=== PATIENT | male | born 1940 | race Caucasian/White ===

== ENCOUNTER 2018-07-13 12:01 | Inpatient (IN) | payer MEDICARE, MEDICAID ==
[~2018-07-13] VITALS: Ht 165.1 cm; Wt 72.3 kg
--- NOTE | 2018-07-13 12:07 | NUR ---
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 PT IS SENT FROM [facility] FOR "G-TUBE MALFUNCTION". UPON ASSESSMENT, G-TUBE SITE IS INFLAMED, FOUL SMELLING, AND ABD DISTENDED. NO DRAINAGE NOTED FROM G-TUBE SITE. G-TUBE APPEARS TO BE CLOGGED WITH BROWN-COLORED SUBSTANCE. VS WNL. PT DOES NOT APPEAR TO BE IN ANY APPARENT DISTRESS AT THIS TIME.
--- NOTE | 2018-07-13 12:38 | NUR ---
GLASSWARE MAKER DEMONSTRATOR AND WATCH SUPERVISOR AT BEDSIDE.
--- NOTE | 2018-07-13 12:40 | NUR ---
Donavon kaplan in [facility] - 07/13/18 at 1243 by WALLACE PT TAKEN TO RADIOLOGY FOR CT SCAN.
[2018-07-13] MEDS ORDERED: VANCOMYCIN IV 200 ML ONE (12:43)
[2018-07-13] MEDS ORDERED: PIPERACILLIN/TAZOBACTAM/D5W 50 ML IV ONE (12:43)
[2018-07-13] MEDS ORDERED: VANCOMYCIN 1G/D5W 200 ML PIGGYBACK IV ONE (12:45)
[2018-07-13] MEDS ORDERED: PIPERACILLIN SODIUM/TAZOBACTAM 2.25 G in IV DEXTROSE 5% 50 ML IV ONE (12:45)
--- NOTE | 2018-07-13 12:52 | NUR ---
PT TAKEN TO RADIOLOGY FOR CT SCAN.
[2018-07-13] MEDS ORDERED: IPRA3AMP23 IH (12:57)
[2018-07-13] MEDS ORDERED: FOLI1TAB16 GT (12:57)
[2018-07-13] MEDS ORDERED: FURO40TA5 GT (12:57)
[2018-07-13] MEDS ORDERED: ASPI81TA31 GT (12:57)
[2018-07-13] MEDS ORDERED: MULT-213 GT (12:57)
[2018-07-13] MEDS ORDERED: ASCO-340 GT (12:57)
[2018-07-13] MEDS ORDERED: THIA100T13 GT (12:57)
[2018-07-13] MEDS ORDERED: NA P133E RC (12:57)
[2018-07-13] MEDS ORDERED: FAMO20TA8 GT (12:57)
[2018-07-13] MEDS ORDERED: DOCU50LI GT (12:57)
[2018-07-13] MEDS ORDERED: LEVO125T8 GT (12:57)
[2018-07-13] MEDS ORDERED: ACET325T53 GT (12:57)
[2018-07-13] MEDS ORDERED: DICL100G16 TP (12:57)
[2018-07-13] MEDS ORDERED: FERR220S18 GT (12:57)
[2018-07-13] MEDS ORDERED: INSU3INS6 SQ (12:57)
[2018-07-13] MEDS ORDERED: NITR0.4T48 SL (12:57)
[2018-07-13] MEDS ORDERED: BISA10SU12 RC (12:57)
[2018-07-13] MEDS ORDERED: AMLO5TAB9 GT (12:57)
[2018-07-13] MEDS ORDERED: ISOS30TA9 GT (12:57)
[2018-07-13] MEDS ORDERED: MAGN400O6 GT (12:57)
[2018-07-13] MEDS ORDERED: BLOO-140 IN (12:57)
--- NOTE | 2018-07-13 13:03 | NUR ---
PT BACK IN ED FROM RADIOLOGY.
[2018-07-13 13:08] LABS: CARBON DIOXIDE 25 mmol/L (21-32); CHLORIDE 103 mmol/L (98-107); CREATININE 3.4 mg/dL (0.6-1.3); GLUCOSE 210 mg/dL (74-106); POTASSIUM 4.4 mmol/L (3.5-5.1); UREA NITROGEN, BLOOD 74 mg/dL (7-18)
[2018-07-13 13:16] LABS: BASOPHILS % (AUTO) 0.3 % (0.0-2.0); EOSINOPHILS # (AUTO) 0.2 K/uL (0.0-0.7); EOSINOPHILS % (AUTO) 3.4 % (0.0-7.0); LYMPHOCYTES # (AUTO) 1.4 K/uL (20.0-40.0); LYMPHOCYTES % (AUTO) 21.2 % (20.5-51.5); MONOCYTES # (AUTO) 0.7 K/uL (2.0-10.0); MONOCYTES % (AUTO) 10.1 % (0.0-11.0); NEUTROPHILS # (AUTO) 4.2 K/uL (1.8-8.9); PLATELET COUNT (AUTO) 247 K/uL (152-348); WHITE BLOOD COUNT (AUTO) 6.4 K/uL (3.6-10.2)
[2018-07-13 13:21] LABS: ALANINE AMINOTRANSFERASE 23 U/L (16-63); ALKALINE PHOSPHATASE 196 U/L (50-136); ASPARTATE AMINOTRANSFERASE 19 U/L (15-37); BILIRUBIN,DIRECT 0.1 mg/dL (0.0-0.2); BILIRUBIN,TOTAL 0.4 mg/dL (0.2-1.0); TOTAL PROTEIN, SERUM 8.3 g/dL (6.4-8.2)
[2018-07-13 14:15] LABS: RED BLOOD CELL COUNT(AUTO) 1.78 MIL/uL (4.06-5.63)
[2018-07-13 14:16] LABS: MEAN CORPUSCULAR HEMOGLOBIN 38.5 uug (23.8-33.4)
[2018-07-13 14:17] LABS: HEMATOCRIT 24.5 % (36.7-47.1); MEAN CORPUSCULAR HGB CONC 37 g/dL (32.5-36.3)
[2018-07-13 15:14] LABS: *BILIRUBIN,URIN NEGATIVE (NEGATIVE); *BLOOD, URINE Trace-intact (NEGATIVE); *CLARITY,URINE CLEAR (CLEAR); *COLOR,URINE YELLOW (YELLOW); *KETONES,URINE NEGATIVE (NEGATIVE); *UROBILINOGEN,URINE 0.2 E.U./dl (NORMAL); LEUKOCYTE ESTERASE ,URINE NEGATIVE (NEGATIVE); NITRITE, URINE NEGATIVE (NEGATIVE); PH,URINE 7.5 (5.0-8.0); UGLUCOSE 1+ (NEGATIVE)
[2018-07-13 15:20] LABS: WBC,URINE 0-3 /HPF (0-3)
[2018-07-13 15:21] LABS: MUCUS,URINE FEW /LPF (0-FEW)
--- NOTE | 2018-07-13 15:24 | NUR ---
CALLED [facility] FOR PANEL CALL. AWAITING CALL-BACK. ATTEMPT 1.
--- NOTE | 2018-07-13 15:51 | NUR ---
ER SPOKE W/ DR. DORSEY RE PT'S ADMISSION.
--- NOTE | 2018-07-13 15:59 | NUR ---
GAVE ADMITTING REPORT TO KWAME BIRD.
--- NOTE | 2018-07-13 16:27 | NUR ---
Pt. admitted to M/S 204, under care of Dr. DORSEY. Belongs List completed
[2018-07-13 17:00] VITALS: BP 117/69
--- NOTE | 2018-07-13 17:00 | NUR ---
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
--- NOTE | 2018-07-13 17:30 | NUR ---
GT SITE AND TRACH STOMA SITE WAS CLEAN AND APPLY DSG INTACT
--- NOTE | 2018-07-13 18:30 | NUR ---
DR DORSEY WAS CALL REGARDING NEED ADM ORDER AND MESSAGE LEFT
--- NOTE | 2018-07-13 19:30 | NUR ---
RECEIVED PT IN BED,AWAKE, ALERT, IN NO ACUTE SIGNS OF DISTRESS. NO C/O PAIN AT THIS TIME. NPO. HERE FOR GTUBE MALFUNCTION. AWAITING FOR ORDERS. SAFETY MEASURES OBSERVED.
[2018-07-13 19:56] VITALS: BP 166/56
[2018-07-13 21:00] VITALS: BP 156/56
[2018-07-13] MEDS ORDERED: DEXTROSE 50% 50 ML DISP.SYRIN IV PRN (21:45)
[2018-07-13 22:00] VITALS: BP 144/49
[2018-07-13] MEDS: IV D5 1/2 NS 1000 ML 1,000 ML IV PRN (22:12)
[2018-07-14] MEDS: BLOOD SUGAR DIAGNOSTIC 1 EACH STRIP VI SCH ×4 (00:35→17:56)
[2018-07-14] MEDS: INSULIN REGULAR, HUMAN 300 UNIT/3 ML VIAL SQ PRN ×4 (00:38→17:58)
[2018-07-14 04:00] VITALS: BP 152/60
[2018-07-14] MEDS: hydrALAZINE HCL 20 MG/1 ML VIAL IV PRN ×4 (04:35→20:11)
--- NOTE | 2018-07-14 06:11 | NUR ---
PT IN BED, RESTING, CONTINUE ON NPO, ACCUCHECK DONE WITH INSULIN COVERAGE. TURNED AND REPOSITIONED. IV FLUID RUNNING ORDERED. SAFETY MEASURES MAINTAINED.
[2018-07-14 06:49] LABS: CARBON DIOXIDE 26 mmol/L (21-32); CHLORIDE 108 mmol/L (98-107); CREATININE 3.1 mg/dL (0.6-1.3); GLUCOSE 158 mg/dL (74-106); POTASSIUM 4.1 mmol/L (3.5-5.1); UREA NITROGEN, BLOOD 65 mg/dL (7-18)
--- NOTE | 2018-07-14 07:45 | NUR ---
DR SUE HERE SEEN PATIENT AND AM LAB RESULT STATE WILL F/U AND CALL [facility]MER CERON HIMSELF
--- NOTE | 2018-07-14 08:00 | NUR ---
AWAKE ALERT COOPERATE WELL NO SOB OR PAIN ON ASPIRATION AND FALL PRECAUTION CONTINUE IVF AND KEEP NPO AT THIS TIME GT INPLACE WITH CLAMP RESTING WELL IN BED WITH CALL LIGHT IN REACH
--- NOTE | 2018-07-14 08:00 | NUR ---
AWAKE COOPERATE WELL NO PAIN OR SOB ,KEEP NPO FOR NOW ,ON FALL AND ASPIRATION PRECAUTION BED ALARM ON AND CALL LIGHT IN REACH
[2018-07-14 08:31] LABS: BASOPHILS % (AUTO) 0.1 % (0.0-2.0); EOSINOPHILS # (AUTO) 0.3 K/uL (0.0-0.7); EOSINOPHILS % (AUTO) 5.1 % (0.0-7.0); HEMATOCRIT 22.7 % (36.7-47.1); HEMOGLOBIN 7.7 g/dL (12.5-16.3); LYMPHOCYTES # (AUTO) 1.3 K/uL (20.0-40.0); LYMPHOCYTES % (AUTO) 20.7 % (20.5-51.5); MEAN CORPUSCULAR HEMOGLOBIN 36.3 uug (23.8-33.4); MEAN CORPUSCULAR HGB CONC 34 g/dL (32.5-36.3); MEAN CORPUSCULAR VOLUME 106.4 fL (73.0-96.2); MONOCYTES # (AUTO) 0.7 K/uL (2.0-10.0); MONOCYTES % (AUTO) 11.3 % (0.0-11.0); NEUTROPHILS # (AUTO) 3.9 K/uL (1.8-8.9); NEUTROPHILS % (AUTO) 62.8 % (38.5-71.5); PLATELET COUNT (AUTO) 158 K/uL (152-348); WHITE BLOOD COUNT (AUTO) 6.2 K/uL (3.6-10.2)
[2018-07-14 08:32] LABS: RED BLOOD CELL COUNT(AUTO) 2.14 MIL/uL (4.06-5.63)
--- NOTE | 2018-07-14 09:00 | NUR ---
PHYSICAL THERAPY HERE AND ASSIST TO OOB AMB STILL GEN WEAK
[2018-07-14 09:36] LABS: EOSINOPHILS % (MANUAL) 5 % (0-8); LYMPHOCYTES % (MANUAL) 20 % (20-40); MONOCYTES % (MANUAL) 11 % (2-10); NEUTROPHILS % (MANUAL) 64 % (42-75)
[2018-07-14 11:46] VITALS: BP 179/65
[2018-07-14] MEDS ORDERED: BLOOD SUGAR DIAGNOSTIC 1 EACH STRIP VI SCH (12:00)
--- NOTE | 2018-07-14 13:00 | NUR ---
STILL KEEP NPO WAITING FOR GI MD CONSULT DR PRADHAN TO SEE HIM TODAY.FAMILY WAS INFORM
[2018-07-14] MEDS: IV D5 1/2 NS 1000 ML 1,000 ML IV PRN (13:01)
[2018-07-14 14:57] VITALS: BP 156/50
--- NOTE | 2018-07-14 17:00 | NUR ---
DR PRADHAN CAME AND SEE PATIENT STATE GET SUPPLY GT MAURITIAN #14 READY FOR HIM IN AM HE WILL CHANGE IT AND MEDICATION ANTIBIOTICS WAS ORDER
[2018-07-14] MEDS ORDERED: VANCOMYCIN IV 1 G in PREMIXED 0 EACH IV SCH ×2 (17:30→18:00)
--- NOTE | 2018-07-14 18:00 | NUR ---
RESTING QUIET KEEP NPO ORDER MOUTH CARE Q2 HR GIVEN STABLE HEMODYNAMIC ,PAIN UNDER CONTROL GT SITE D/I DRAINAGE LESS TODAY SAFETY MEASURE PROVIDED CALL LIGHT IN REACH CONTINUE IVF
--- NOTE | 2018-07-14 18:08 | NUR ---
CLINICAL PHARMACY NOTE:VANCOMYCIN DOSING Vancomycin dosing per protocol on 78 y/o male 5'5" 159 for cellulitis Temp 98 BUN 65 Scr 3.1 WBC 6.2 also on Zosyn. Due to decrease renal function will dose by levels. Give vancomycin 1gm ivpb today. Random level ordered for tomorrow evening.Will continue to monitor.
[2018-07-14 19:12] VITALS: BP 158/51
[2018-07-14] MEDS: PIPERACILLIN/TAZOBACTAM/D5W 3.375 G in PREMIXED 1 EACH IV SCH (20:45)
[2018-07-14] MEDS ORDERED: PIPERACILLIN/TAZOBACTAM/D5W 3.375 G in PREMIXED 1 EACH IV SCH (22:00)
[2018-07-15] MEDS: BLOOD SUGAR DIAGNOSTIC 1 EACH STRIP VI SCH ×5 (01:21→23:33)
[2018-07-15] MEDS: INSULIN REGULAR, HUMAN 300 UNIT/3 ML VIAL SQ PRN ×5 (01:21→23:35)
--- NOTE | 2018-07-15 02:21 | NUR ---
pt continues to have productive cough yellow and thick on stoma. stoma cleaned as and suctioned as needed. no signs of sob. will continue to reassess
[2018-07-15 03:37] VITALS: BP 140/54
[2018-07-15 06:13] LABS: IRON, SERUM 53 ug/dL (50-175)
[2018-07-15 06:39] LABS: FERRITIN 280 ng/mL (26-388)
[2018-07-15 06:43] LABS: EOSINOPHILS # (AUTO) 0.2 K/uL (0.0-0.7); EOSINOPHILS % (AUTO) 3.1 % (0.0-7.0); HEMATOCRIT 24.7 % (36.7-47.1); HEMOGLOBIN 8.7 g/dL (12.5-16.3); LYMPHOCYTES # (AUTO) 0.7 K/uL (20.0-40.0); LYMPHOCYTES % (AUTO) 11.8 % (20.5-51.5); MEAN CORPUSCULAR HGB CONC 35 g/dL (32.5-36.3); MEAN CORPUSCULAR VOLUME 102.7 fL (73.0-96.2); MONOCYTES # (AUTO) 0.6 K/uL (2.0-10.0); MONOCYTES % (AUTO) 10.6 % (0.0-11.0); NEUTROPHILS # (AUTO) 4.2 K/uL (1.8-8.9); NEUTROPHILS % (AUTO) 74.5 % (38.5-71.5); WHITE BLOOD COUNT (AUTO) 5.6 K/uL (3.6-10.2)
[2018-07-15 06:44] LABS: PLATELET COUNT (AUTO) 166 K/uL (152-348)
[2018-07-15 07:15] LABS: EOSINOPHILS % (MANUAL) 3 % (0-8); LYMPHOCYTES % (MANUAL) 12 % (20-40); MONOCYTES % (MANUAL) 10 % (2-10); NEUTROPHILS % (MANUAL) 75 % (42-75)
--- NOTE | 2018-07-15 07:47 | NUR ---
patient resting comfortably in bed at this time. NPO status. a/ox4. s/p trach with stoma - clean at this time. ivf running. stable condition. no signs of distress. bed alarm on. call light within reach of patient. will f/u with OR about g-tube and possible placement per MD orders.
[2018-07-15] MEDS: PIPERACILLIN/TAZOBACTAM/D5W 3.375 G in PREMIXED 1 EACH IV SCH ×2 (09:03→20:25)
--- NOTE | 2018-07-15 10:02 | NUR ---
WOUND CARE CONSULT WOUND CARE RECEIVED CONSULT FOR G TUBE SITE INFECTION. WOUND CARE WILL DEFER TO PMD/SURGICAL/GI AT THIS TIME. PATIENT WITH PAUL AT 17, ALL PRESSURE ULCER PREVENTION MEASURES ARE NOTED TO BE IN PLACE AT THIS TIME. WILL SEE PRN.
[2018-07-15 11:29] VITALS: BP 135/60
--- NOTE | 2018-07-15 11:30 | NUR ---
NON-ADMINISTRATION INSULIN PER SLIDING SCALE: RISK OF HYPOGLYCEMIA.
[2018-07-15 13:00] VITALS: BP 164/59
--- NOTE | 2018-07-15 13:10 | NUR ---
ELEVATED BP: 164/59, HR 64. ADMINISTERED HYDRALAZINE 10 MG IVP PRN. WILL RE-CHECK BP. STABLE CONDITION AT THIS TIME. NO SIGNS OF DISTRESS.
[2018-07-15] MEDS: hydrALAZINE HCL 20 MG/1 ML VIAL IV PRN (13:59)
--- NOTE | 2018-07-15 14:18 | NUR ---
OBTAINED EQUIPMENT MD REQUESTED FOR, WHICH IS AT BEDSIDE. AWAITING MD ARRIVAL FOR INSERTION.
[2018-07-15 14:39] VITALS: BP 143/49
[2018-07-15 15:09] VITALS: BP 164/59
--- NOTE | 2018-07-15 15:22 | NUR ---
Clinical Pharmacy Note: Vancomycin Dosing per Pharmacy Subjective: Vancomycin IV to continue on this 78 yo male patient for cellulitis. Objective: BUN 65/Scr 3.1 (ARF) WBC 6.2 Temperature 98.4 Vanco random level: Pending (ordered for today at 1700) ht 165 cm wt 72 kg Assessment/Plan: Will continue to dose by level due to elevated srcr. Patient received vanco 1gm IVPB x1 dose yesterday at 1800. Plan to draw vanco random level today at 1700. Will review the level & dose further if needed as per level. Will follow daily. Addendum: 07/15/18 at 1825 by DENNIS SARMIENTO ADM VANCOMYCIN TROUGH @ 17:32 = 14.3 ; WILL GIVE ANOTHER DOSE OF VANCOMYCIN 1GM X 1
[2018-07-15 15:25] LABS: *BILIRUBIN,URIN NEGATIVE (NEGATIVE); *BLOOD, URINE Trace-lysed (NEGATIVE); *CLARITY,URINE CLEAR (CLEAR); *COLOR,URINE YELLOW (YELLOW); *KETONES,URINE NEGATIVE (NEGATIVE); *UROBILINOGEN,URINE 0.2 E.U./dl (NORMAL); LEUKOCYTE ESTERASE ,URINE NEGATIVE (NEGATIVE); NITRITE, URINE NEGATIVE (NEGATIVE); PH,URINE 8.5 (5.0-8.0); UGLUCOSE NEGATIVE (NEGATIVE)
[2018-07-15 15:33] LABS: BACTERIA,URINE NONE SEEN /HPF (NONE SEEN); RBC,URINE 0-3 /HPF (0-3); SQUAMOUS EPITHELIAL CELL,UR FEW /HPF (NONE SEEN); WBC,URINE 0-3 /HPF (0-3)
[2018-07-15 15:39] LABS: *CREATININE,URINE 74.4 mg/dL (30-125)
[2018-07-15 15:49] LABS: MUCUS,URINE FEW /LPF (0-FEW)
--- NOTE | 2018-07-15 17:45 | NUR ---
awaiting g-tube reinsertion by Dr. Hoover. No significant changes throughout shift. stable condition. no signs of respiratory distress. continues to have thick/yellow secretions from trach stoma upon coughing - clean at this time. NPO status. ivf running. blood sugar monitored and managed.
--- NOTE | 2018-07-15 17:49 | NUR ---
bed alarm on, call light within reach of patient. safety measures implemented.
[2018-07-15] MEDS ORDERED: VANCOMYCIN IV 1 G in PREMIXED 0 EACH IV ONE (18:30)
--- NOTE | 2018-07-15 19:25 | NUR ---
RECEIVED PT AWAKE,ALERT, AND ORINTEDX3.PT SHOWS NO SIGNS OF DISTRESS.PT IV INTACT AND PATENT.PT ON NPO. PT ON G-TUBE. CALL LIGHT WITHIN REACH. SAFETY AND COMFORT PROVIDED. WILL CONTINUE TO MONITOR.
[2018-07-15 20:11] VITALS: BP 159/64
[2018-07-16 04:00] VITALS: BP 147/61
[2018-07-16] MEDS: IV D5 1/2 NS 1000 ML 1,000 ML IV PRN (05:11)
[2018-07-16] MEDS: BLOOD SUGAR DIAGNOSTIC 1 EACH STRIP VI SCH ×3 (05:17→17:24)
--- NOTE | 2018-07-16 06:19 | NUR ---
PT SLEPT THROUGHOUT THE SHIFT. PT SHOWS NO SIGNS OF ACUTE DISTRESS. PT IV INTACT AND PATENT.PT ON NPO. CALL LIGHT WITHIN REACH. SAFETY AND COMFORT PROVIDED. WILL ENDORSE ACCORDINGLY TO INCOMING NURSE FOR CONTINUITY OF CARE.
--- NOTE | 2018-07-16 07:08 | NUR ---
PATIENT RESTING IN BED AT THIS TIME. AWAITING DR. PRADHAN FOR G-TUBE RE-INSERTION. STABLE CONDITION. NO SIGNS OF DISTRESS. NO SIGNS OF RESPIRATORY DISTRESS. BED ALARM ON, CALL LIGHT WITHIN REACH OF PATIENT. IVF RUNNING. BLOOD SUGAR MANAGED THIS MORNING. NO COVERAGE NEEDED.
[2018-07-16 07:41] LABS: ALANINE AMINOTRANSFERASE 17 U/L (16-63); ALKALINE PHOSPHATASE 166 U/L (50-136); ASPARTATE AMINOTRANSFERASE 26 U/L (15-37); BILIRUBIN,TOTAL 0.6 mg/dL (0.2-1.0); CARBON DIOXIDE 22 mmol/L (21-32); CHLORIDE 115 mmol/L (98-107); GLUCOSE 151 mg/dL (74-106); MAGNESIUM 2.7 mg/dL (1.8-2.4); PHOSPHOROUS 3.8 mg/dL (2.5-4.9); POTASSIUM 4.2 mmol/L (3.5-5.1); TOTAL PROTEIN, SERUM 7.3 g/dL (6.4-8.2); UREA NITROGEN, BLOOD 50 mg/dL (7-18)
[2018-07-16 07:47] LABS: BASOPHILS % (AUTO) 0.2 % (0.0-2.0); EOSINOPHILS # (AUTO) 0.1 K/uL (0.0-0.7); EOSINOPHILS % (AUTO) 2.9 % (0.0-7.0); HEMATOCRIT 22.1 % (36.7-47.1); HEMOGLOBIN 8.2 g/dL (12.5-16.3); LYMPHOCYTES # (AUTO) 0.5 K/uL (20.0-40.0); LYMPHOCYTES % (AUTO) 16.1 % (20.5-51.5); MEAN CORPUSCULAR HEMOGLOBIN 40.2 uug (23.8-33.4); MEAN CORPUSCULAR HGB CONC 37 g/dL (32.5-36.3); MEAN CORPUSCULAR VOLUME 108.2 fL (73.0-96.2); MONOCYTES # (AUTO) 0.2 K/uL (2.0-10.0); MONOCYTES % (AUTO) 6.5 % (0.0-11.0); NEUTROPHILS # (AUTO) 2.3 K/uL (1.8-8.9); NEUTROPHILS % (AUTO) 74.3 % (38.5-71.5)
[2018-07-16 07:51] LABS: RED BLOOD CELL COUNT(AUTO) 2.05 MIL/uL (4.06-5.63)
[2018-07-16 07:54] LABS: PLATELET COUNT (AUTO) 163 K/uL (152-348); WHITE BLOOD COUNT (AUTO) 5.1 K/uL (3.6-10.2)
[2018-07-16] MEDS: PIPERACILLIN/TAZOBACTAM/D5W 3.375 G in PREMIXED 1 EACH IV SCH ×2 (08:14→20:55)
[2018-07-16] MEDS: NITROGLYCERIN OINT 1 GM PACKET TP SCH ×3 (08:15→17:35)
--- NOTE | 2018-07-16 08:15 | NUR ---
INCREASED BP AT 164/58. NITROBID ADMINISTERED. WILL RE-CHECK.
--- NOTE | 2018-07-16 09:30 | NUR ---
DR. PRADHAN INSERTED G-TUBE. DR. PRADHAN ALSO ORDERED TO HAVE FEEDINGS HELD UNTIL TOMORROW MORNING. RECOMMENDATIONS PLACED BY REGISTERED DIETITIAN: -NEPRO WITH CARB STEADY @45 ML/HR X 20 HOURS; WATER FLUSHES 200 ML X4 DAILY OR PER MD ORDERS. START AT 20 ML/HR, INCREASE 10 ML Q6H UNTIL GOAL RATE IS REACHED.
[2018-07-16 09:38] VITALS: BP 165/53
[2018-07-16] MEDS: hydrALAZINE HCL 20 MG/1 ML VIAL IV PRN (10:01)
[2018-07-16 10:11] LABS: EOSINOPHILS % (MANUAL) 3 % (0-8); LYMPHOCYTES % (MANUAL) 23 % (20-40); MONOCYTES % (MANUAL) 5 % (2-10); NEUTROPHILS % (MANUAL) 74 % (42-75)
[2018-07-16 10:51] VITALS: BP 157/66
[2018-07-16] MEDS: INSULIN REGULAR, HUMAN 300 UNIT/3 ML VIAL SQ PRN ×2 (12:06→17:35)
[2018-07-16 12:17] VITALS: BP 154/50
--- NOTE | 2018-07-16 13:08 | NUR ---
Clinical Pharmacy Note: Vancomycin Dosing per Pharmacy Subjective: Vancomycin IV to continue on this 78 yo male patient for cellulitis. Objective: BUN 50/Scr 3.0 (ARF) WBC 5.0 Temperature 98.4 Vanco random level: 14.3 (on 07/15 at 1700) ht 165 cm wt 72 kg Assessment/Plan: Will continue to dose by level due to elevated srcr. Patient received vanco 1gm IVPB x1 dose yesterday at 1830. Plan to draw vanco random level tomorrow with am lab. Will review the level & dose further if needed as per level. Will follow daily.
[2018-07-16 15:10] VITALS: BP 128/43
--- NOTE | 2018-07-16 15:49 | NUR ---
RECOMMENDATIONS PLACED BY REGISTERED DIETITIAN: -NEPRO WITH CARB STEADY @45 ML/HR X 20 HOURS; WATER FLUSHES 200 ML X4 DAILY OR PER MD ORDERS. START AT 20 ML/HR, INCREASE 10 ML Q6H UNTIL GOAL RATE IS REACHED.
--- NOTE | 2018-07-16 18:22 | NUR ---
PATIENT STABLE THROUGHOUT SHIFT. BLOOD PRESSURE AND BLOOD SUGAR MONITORED AND MANAGED. SUCTIONED TRACH STOMA THAT PRESENTED WITH THINK YELLOW SPUTUM. G-TUBE REPLACED BY DR. PRADHAN. NO SIGNS OF BLEEDING AT SITE AT THIS TIME. FEEDING WILL START TOMORROW IN THE AM. BED ALARM DRAMA DIRECTOR LIGHT WITHIN REACH. SAFETY MEASURES IMPLEMENTED. WILL CONTINUE TO MONITOR UNTIL END OF SHIFT.
--- NOTE | 2018-07-16 19:49 | NUR ---
Patient comfortably on bed . Breathing even and unlabored . Awake oriented . Able to make needs known . GT feeding still on hold til tomorrow . No complained of pain discomfort at this time . Frequent visual checks and monitor .
[2018-07-16 20:00] VITALS: BP 169/67
[2018-07-17] MEDS: NITROGLYCERIN OINT 1 GM PACKET TP SCH ×4 (00:39→17:08)
[2018-07-17] MEDS: BLOOD SUGAR DIAGNOSTIC 1 EACH STRIP VI SCH ×4 (00:43→17:08)
[2018-07-17 06:36] LABS: ALANINE AMINOTRANSFERASE 27 U/L (16-63); ALKALINE PHOSPHATASE 156 U/L (50-136); ASPARTATE AMINOTRANSFERASE 32 U/L (15-37); BILIRUBIN,TOTAL 0.8 mg/dL (0.2-1.0); CARBON DIOXIDE 22 mmol/L (21-32); CHLORIDE 115 mmol/L (98-107); CREATININE 3.2 mg/dL (0.6-1.3); GLUCOSE 162 mg/dL (74-106); MAGNESIUM 2.8 mg/dL (1.8-2.4); PHOSPHOROUS 4.1 mg/dL (2.5-4.9); POTASSIUM 3.7 mmol/L (3.5-5.1); TOTAL PROTEIN, SERUM 7.2 g/dL (6.4-8.2); UREA NITROGEN, BLOOD 50 mg/dL (7-18); VANCOMYCIN,RANDOM 19.3 ug/mL (18.0-26.0)
[2018-07-17 06:47] LABS: BASOPHILS % (AUTO) 0.2 % (0.0-2.0); EOSINOPHILS # (AUTO) 0.2 K/uL (0.0-0.7); EOSINOPHILS % (AUTO) 2.8 % (0.0-7.0); HEMATOCRIT 24.6 % (36.7-47.1); HEMOGLOBIN 8.7 g/dL (12.5-16.3); LYMPHOCYTES % (AUTO) 19.1 % (20.5-51.5); MEAN CORPUSCULAR HEMOGLOBIN 36.5 uug (23.8-33.4); MEAN CORPUSCULAR HGB CONC 35 g/dL (32.5-36.3); MEAN CORPUSCULAR VOLUME 103.1 fL (73.0-96.2); MONOCYTES # (AUTO) 0.4 K/uL (2.0-10.0); MONOCYTES % (AUTO) 6.6 % (0.0-11.0); NEUTROPHILS # (AUTO) 3.9 K/uL (1.8-8.9); NEUTROPHILS % (AUTO) 71.3 % (38.5-71.5); PLATELET COUNT (AUTO) 153 K/uL (152-348); RED BLOOD CELL COUNT(AUTO) 2.38 MIL/uL (4.06-5.63); WHITE BLOOD COUNT (AUTO) 5.5 K/uL (3.6-10.2)
[2018-07-17] MEDS: INSULIN REGULAR, HUMAN 300 UNIT/3 ML VIAL SQ PRN ×3 (07:54→17:15)
--- NOTE | 2018-07-17 08:30 | NUR ---
DR ROSENTHALIAN HERE TO SEE PATIENT AND HAD INITIALLY ORDERED TO DISCHARGE PATIENT BUT THE STATED TO DISREGARD SINCE THE PATIENT HAS NOT STARTED HIS TUBE FEEDING YET.PATIENT IS AWAKE ALERT AND AWARE REMAIN ON ANTIBIOTICS ORDERED WITH NO ADVERSE OR ALLERGIC REACTIONS AT THIS TIME.
[2018-07-17] MEDS: PIPERACILLIN/TAZOBACTAM/D5W 3.375 G in PREMIXED 1 EACH IV SCH ×2 (08:44→20:43)
--- NOTE | 2018-07-17 11:54 | NUR ---
PER THE MANAGER OF DRILLING SHE DID CALL AND SPOKE WITH DR DAVIDA PAYNE RE RESTARTING THE GT FEEDINGS AND HE STATED TO HOLD OFF RESTARTING THE GT FEEDING UNTIL HE COMES IN THIS AFTERNOON AND CHECK THE PATIENT BEFORE WE COULD RESTART THE TUBE FEEDINGS.
[2018-07-17 12:00] VITALS: BP 188/77
--- NOTE | 2018-07-17 12:21 | NUR ---
BLOOD PRESSURE AT THIS TIME IS 188/77 HE HAS NITROBID DUE GIVEN ORDERED AND WILL OBSERVE.
[2018-07-17] MEDS: hydrALAZINE HCL 20 MG/1 ML VIAL IV PRN (13:34)
--- NOTE | 2018-07-17 13:34 | NUR ---
BLOOD PRESSURE RECHECKED AND ITS 155/76 MEDICATED WITH APRESOLIN ORDERED AND WILL OBSERVE.
--- NOTE | 2018-07-17 14:00 | NUR ---
SUCTIONED A FEW TIMES WITH THICK YELLOWISH PHLEGM FROM HIS TRACH STOMA.
--- NOTE | 2018-07-17 15:00 | NUR ---
DR MELTON HERE AND SEEN PATIENT AND PER THE SOCIOLOGY FACULTY MEMBER STATED TO HOLD OFF GT FEEDINGS AND START IN AM.
--- NOTE | 2018-07-17 15:17 | NUR ---
Clinical Pharmacy Note: Vancomycin Dosing per Pharmacy Subjective: Vancomycin IV to continue on this 78 yo male patient for cellulitis. Objective: BUN 50/Scr 3.2 (ARF) WBC 5.5 Temperature 98.3 Vanco random level: 19.3 today with am labs ht 165 cm wt 72 kg Assessment/Plan: Will continue to dose by level due to elevated srcr. Based on random level, will dose another 1gm x 1 tonight at 1800. Will check Scr in am and reorder next random level (not ordered yet). Will follow
[2018-07-17 16:00] VITALS: BP 146/69
[2018-07-17] MEDS: IV D5 1/2 NS 1000 ML 1,000 ML IV PRN (16:43)
[2018-07-17] MEDS ORDERED: VANCOMYCIN IV 1 G in PREMIXED 0 EACH IV ONE (18:00)
--- NOTE | 2018-07-17 18:00 | NUR ---
RECEIVED REPORT VIA FAX FOR MRSA POSITIVE TO THE ABDOMINAL GT SITE PATIENT IS CURRENTLY ON VANCO ANT THIS ORGANISM IS SENSITIVE TO VANCOMICIN MESSAGE LEFT FOR DR SUE.
--- NOTE | 2018-07-17 19:20 | NUR ---
Received patient lying in bed. Awake and alert but aphasic. In no acute distress. No signs or symptoms of pain or SOB noted. O2 sat at 96% on RA. NPO status. GT intact and patent. IV site on LFA intact and patent. IVF infusing. Started new IV line on RFA #22gauge. Safety measure initiated and call bustos within reach. Isolation precaution observed.
[2018-07-17 19:21] VITALS: BP 156/66
[2018-07-18] MEDS: NITROGLYCERIN OINT 1 GM PACKET TP SCH ×3 (00:01→11:27)
[2018-07-18] MEDS: BLOOD SUGAR DIAGNOSTIC 1 EACH STRIP VI SCH ×3 (00:02→11:27)
[2018-07-18] MEDS: INSULIN REGULAR, HUMAN 300 UNIT/3 ML VIAL SQ PRN ×3 (00:04→11:29)
[2018-07-18] MEDS: hydrALAZINE HCL 20 MG/1 ML VIAL IV PRN ×2 (02:58→13:58)
[2018-07-18 03:33] VITALS: BP 152/51
[2018-07-18] MEDS ORDERED: NEPRO 1000 ML GT PRN ×2 (06:00→07:53)
--- NOTE | 2018-07-18 06:33 | NUR ---
Awake and alert but aphasic. Able to make needs known. In no acute distress. No signs or symptoms of pain or SOB noted. O2 sat at 98% on RA. GT intact and patent. GT feeding started per order. IV site on LFA and RFA intact and patent. IVF infusing. No adverse reaction noted from IV ABX. Safety measure maintained and call bustos within reach. Isolation precaution observed.
--- NOTE | 2018-07-18 07:27 | NUR ---
RECEIVED PATIENT AWAKE ALERT AND AWARE MAKES NEEDS KNOW BY GESTURES AND MUMBLING WORDS HE HAS NO VOICE HE IS CURRENTLY ON GT FEEDINGS AT 20 ML/HR ORDERED WITH NO LEAKING AT THIS TIME NO NAUSEA OR VOMITING AT THIS TIME TRACH STOMA OPEN AND INTACT NO REDNESS OR DRAINAGE AT THIS TIME NO ADVERSE OR ALLERGIC REACTIONS AT THIS TIME.
[2018-07-18] MEDS: PIPERACILLIN/TAZOBACTAM/D5W 3.375 G in PREMIXED 1 EACH IV SCH (08:16)
[2018-07-18] MEDS: IV D5 1/2 NS 1000 ML 1,000 ML IV PRN (08:16)
[2018-07-18 12:00] VITALS: BP 172/85
--- NOTE | 2018-07-18 13:10 | NUR ---
DR SUE HERE TO SEE PATIENT WITH ORDER TO DISCHARGE PATIENT BACK TO [facility] TODAY THE CHARACTER IMPERSONATOR STATED THAT [facility] WILL ACCEPT PATIENT BACK EVEN THOUGH HE IS ON ISOLATION ROOM 334A
--- NOTE | 2018-07-18 13:19 | NUR ---
Clinical Pharmacy Note: Vancomycin Dosing per Pharmacy Subjective: Vancomycin IV to continue on this 78 yo male patient for cellulitis. Objective: BUN 50/Scr 3.2 (ARF-04/16) WBC 5.5 (04/16) Temperature 98.3 Vanco random level: 19.3 ON 07/17 ht 165 cm wt 72 kg Assessment/Plan: Will continue to dose by level due to elevated srcr. Patient received vanco 1gm x 1 on 07/17 at 1700. No dose due today. Will reorder next random level for tomorrow for further dosing. Will follow
[2018-07-18] MEDS ORDERED: VANC750F2 IV (13:23)
--- NOTE | 2018-07-18 14:02 | NUR ---
BLOOD PRESSURE RECHECKED AFTER DUE NITRO GIVEN AND ITS 184/74 HR 81 APRESOLINE GIVEN IV ORDERED PATIENTS AT THE BEDSIDE AND AWARE THAT PATIENT WILL BE PICKED UP ABOUT 1445 THIS AFTER [facility] AND SHE EXPRESSED UNDERSTANDING.
--- NOTE | 2018-07-18 14:19 | NUR ---
CALLED SARA FINN TO GIVE REPORT AND PER WENDY THE LITIGATION ASSOCIATE THE RN AGRISCIENCE INSTRUCTOR IS NOT AVAILABLE AT THE MOMENT AWAITING FOR RETURN CALL.
--- NOTE | 2018-07-18 14:35 | NUR ---
CALL RECEIVED FROM [facility]ARA FINN FROM VIVIANA RN IS CONSULTANT REPORT GIVEN TO HER FOR CONTINUING CARE PATIENT TO CONTINUE ON GT FEEDINGS AT 30ML/HR AND TO INCREASE AT 6PM TO 40 THEN INCREASE AGAIN IN 6 HOURS WITH A GOAL OF 45 ML/H FOR 20 HOURS DAILY.ALSO PATIENT HAS 2 HEP LOCKS TO CONTINUE ON IV ANTIBIOTICS ORDERED.VANCO TROUGH DUE TO BE CHECKED IN AM AND AND VANCO WAS LAST GIVEN AT 1700 07/17/18 AND SHE EXPRESSED UNDERSTANDING
--- NOTE | 2018-07-18 15:20 | NUR ---
DR PRADHAN HERE TO SEE PATIENT AWARE THAT PATIENT IS BEING DISCHARGED BACK TO [facility] AND TOLERATING HIS TUBE FEEDING WITH THE RATE CURRENTLY AT 30 WITH NO DRAINGE AT THE GT SITE AT THIS TIME NO GASTRIC RESIDUAL AND STATED OKAY
--- NOTE | 2018-07-18 15:23 | NUR ---
AMBULANCE HERE TO TAKE PATIENT DISCHARGE INSTRUCTIONS GIVEN AND PATIENT DISCHARGED ALL HIS PERSONAL BELONGINGS WAS GIVEN TO THE AMBULANCE TECHS NO RESPIRATOTY DISTRESS AT THIS TIME.
[2018-07-18 16:00] VITALS: BP 156/73
== END 2018-07-18 15:24 | DRG 393 ==
LOC: ER 12:01 → MED 16:18
PROVIDERS: ADMIT Internal Medicine; ATTEND Internal Medicine
PROC: 0D20XUZ Change Feeding Device in Upper Intestinal Tract, External Approach (ICD-10-PCS; principal; 2018-07-17)
DX: K94.22 Gastrostomy infection (principal); N17.0 Acute kidney failure with tubular necrosis; L03.311 Cellulitis of abdominal wall; Z93.0 Tracheostomy status; F17.210 Nicotine dependence, cigarettes, uncomplicated; K21.9 Gastro-esophageal reflux disease without esophagitis; N18.9 Chronic kidney disease, unspecified; I12.9 Hypertensive chronic kidney disease with stage 1 through stage 4 chronic kidney disease, or unspecified chronic kidney disease; Z85.21 Personal history of malignant neoplasm of larynx; Z79.4 Long term (current) use of insulin; D64.9 Anemia, unspecified; E11.22 Type 2 diabetes mellitus with diabetic chronic kidney disease; K74.60 Unspecified cirrhosis of liver; K80.20 Calculus of gallbladder without cholecystitis without obstruction; Y84.8 Other medical procedures as the cause of abnormal reaction of the patient, or of later complication, without mention of misadventure at the time of the procedure; Y73.8 Miscellaneous gastroenterology and urology devices associated with adverse incidents, not elsewhere classified; Y92.129 Unspecified place in nursing home as the place of occurrence of the external cause; B95.62 Methicillin resistant Staphylococcus aureus infection as the cause of diseases classified elsewhere
CPT/HCPCS: 36415; 71045; 82747; 83550; 83735; 83970; 84100; 84156; 84300; 85014; 85025; 85610; 85730; 87040; 87070; 87077; 87086; 93005; 97110; 97116; 97530; A4217; A4663; G0378; J0360; J1815; J2543; J3370; J3490; J7050